=== PATIENT | female | born 1940 | race Caucasian/White ===

== ENCOUNTER 2017-07-24 16:00 | Inpatient (IN) | payer OTHER ==
[~2017-07-24] VITALS: Ht 167.6 cm; Wt 54.2 kg
[~2017-07-24 16:00] MED LIST: AMITRIPTYLIN25 MG PO; EC-NAPROSYN500 MG PO; TRAMADOL HYDROC50 MG PO
--- NOTE | 2017-07-24 16:23 | NUR ---
PT TAKEN BY WHEELCHAIR TO ROOM.
[2017-07-24] MEDS ORDERED: VERAPAMIL240 M1 PO (16:57)
[2017-07-24] MEDS ORDERED: VERAPAMIL120 M1 PO (16:57)
[2017-07-24] MEDS ORDERED: SPIRIVA RE2.5 MCG/AC IN (16:58)
[2017-07-24] MEDS ORDERED: VENTOLIN HFA IN (16:59)
[2017-07-24] MEDS ORDERED: XARELTO10 MG PO (17:02)
[2017-07-24] MEDS ORDERED: AMITRIPTYLIN25 MG PO (17:03)
[2017-07-24] MEDS ORDERED: CRESTOR20 MG PO (17:04)
[2017-07-24] MEDS ORDERED: PANTOPRAZOLE SO40 MG PO (17:04)
[2017-07-24] MEDS ORDERED: MIRAPEX0.125 MG PO (17:06)
[2017-07-24] MEDS ORDERED: ACETAMIN500 M2 PO (17:08)
[2017-07-24] MEDS ORDERED: AMBIEN5 MG PO (17:10)
[2017-07-24] MEDS ORDERED: PROLIA60 MG/ML SC (17:11)
[2017-07-24] MEDS ORDERED: TOVIAZ8 MG PO (17:13)
[2017-07-24] MEDS ORDERED: TRIMETHOPRIM100 MG PO (17:13)
[2017-07-24] MEDS ORDERED: UNIPHYL400 MG PO (17:14)
[2017-07-24] MEDS ORDERED: B121000 MCG PO (17:15)
[2017-07-24] MEDS ORDERED: SYMBICORT1 AE1 IN (17:16)
[2017-07-24] MEDS ORDERED: SEROQUEL25 MG PO (17:16)
[2017-07-24] MEDS ORDERED: AMOX/K CLAV875 M1 PO (17:17)
[2017-07-24] MEDS ORDERED: PREDNISONE20 MG PO (17:17)
--- NOTE | 2017-07-24 17:19 | NUR ---
BEDRESTING. YUMIKO PHAN
--- NOTE | 2017-07-24 17:44 | NUR ---
Pt awaiting test results. Meds given, awaiting respiratory for breathing tx's
--- NOTE | 2017-07-24 17:51 | NUR ---
BREATHING TREATMENT GIVEN BACK TO BACK. BREATHING TECH./ FOR GOOD DEPOSITION TO THE LUNGS.
[2017-07-24 17:57] LABS: HEMATOCRIT 37.5 % (37.0-47.0); HEMOGLOBIN 12.2 g/dl (12.0-16.0); IMMATURE GRANULOCYTES 0.2 % (0.0-1.0); MEAN CELL VOLUME 93.5 fL CALC (80.0-100.0); MEAN CORPUSCULAR HGB 30.4 pG CALC (26.0-32.0); MEAN CORPUSCULAR HGB CONC 32.5 g/L CALC (32.0-36.0); NEUT# 5.21 thou/uL (2.00-7.15); RED BLOOD COUNT 4.01 mill/uL (4.20-5.60); RED CELL DISTRI WIDTH 12.9 % (11.5-15.5)
[2017-07-24 18:17] LABS: ALBUMIN 4.3 g/dL (3.2-5.0); ALKALINE PHOSPHATASE 47 u/l (38-126); ANION GAP 16 (6-22 (CALC)); BILIRUBIN, TOTAL 0.5 mg/dL (0.0-1.4); BUN 10 mg/dL (8-23); BUN/CREATININE RATIO 18 (12-20 (CALC)); CALCIUM 9.4 mg/dL (8.4-10.2); CARBON DIOXIDE 23 mmol/l (22-30); CHLORIDE 107 mmol/l (95-108); CREATININE 0.6 mg/dL (0.5-1.0); GFR > 60 ML/MIN (>=60 (CALC)); GFR FOR AFR.AMER. > 60 ML/MIN (>=60 (CALC)); GLUCOSE 92 mg/dL (82-115); POTASSIUM 3.5 mmol/l (3.5-5.1); SGOT/AST 29 u/l (9-36); SGPT/ALT 31 u/l (11-66); SODIUM 142 mmol/l (137-146); TOTAL PROTEIN 7.3 g/dL (6.3-8.2)
[2017-07-24 18:29] LABS: MYOGLOBIN 27 ng/mL (0 - 62)
--- NOTE | 2017-07-24 18:32 | NUR ---
TO RADIOLOGY VIA W/C. SMILING AND COOPERATIVE
--- NOTE | 2017-07-24 18:46 | NUR ---
UPON RETURN FROM RADIOLOGY, WENT TO BATHROOM. BECAME GROSSLY SOB-USING ACCESSORY MUSCLES TO BREATHE. MD AT BEDSIDE. ADVISED ADMISSION. PT AGREED TO STAY.
--- NOTE | 2017-07-24 18:59 | NUR ---
REPORT TO JEROD PATINO
[2017-07-24 19:02] LABS: URINE BILIRUBIN - DIPSTICK NEGATIVE (NEGATIVE); URINE BLOOD DIPSTICK NEGATIVE (NEGATIVE); URINE COLOR YELLOW; URINE GLUCOSE - DIPSTICK NEGATIVE (NEGATIVE); URINE KETONE TRACE mg/dL (NEGATIVE); URINE LEUK ESTERASE NEGATIVE (NEGATIVE); URINE NITRITE - DIPSTICK NEGATIVE (Negative); URINE PROTEIN - DIPSTICK NEGATIVE (NEG-TRACE); URINE SPECIFIC GRAVITY 1.015; URINE UROBILINOGEN - DIPSTICK 0.2 E.U./dL (0.2)
[2017-07-24 19:03] LABS: URINE CLARITY CLEAR
--- NOTE | 2017-07-24 19:18 | NUR ---
PT AWAKE AND ALERT, NO RESP DISTRESS NOTED. RESP TECH PLACED PT ON O2 AT 2L VIA NC.
--- NOTE | 2017-07-24 20:01 | NUR ---
DR CÁRDENAS AT BEDSIDE.
--- NOTE | 2017-07-24 20:40 | NUR ---
MED/SURG CALLED FOR REPORT, UNABLE TO TAKE AT THIS TIME.
--- NOTE | 2017-07-24 21:51 | NUR ---
REPORT TO JB NEWSOME
--- NOTE | 2017-07-24 21:56 | NUR ---
PT ASSISTED TO BATHROOM WITH W/C AND RN. PT BECAME SOB AND VERY ANXIOUS, RETURNED TO BED.
--- NOTE | 2017-07-24 22:08 | NUR ---
DR CÁRDENAS AT BEDSIDE TO EVALUATE PT. PT SA02 95% LUNGS CLEAR.
[2017-07-24 22:10] VITALS: BP 135/84
--- NOTE | 2017-07-24 22:14 | NUR ---
PT TO RM 282 WITH O2 AND NURSE.
--- NOTE | 2017-07-24 23:00 | NUR ---
PATIENT ADMITTED FROM ER VIA STRETCHER WITH AND ER STAFF IN ATTENDANCE. PATIENT ASSITED TO THE BED-O2 VIA NASAL CANNULA IN PLACE. PATIENT WITH IV SITE TO RIGHT AC-SITE APPEARS HEALTHY WITH GOOD BLOOD RETURN. IVF LR HUNG AND INFUSING AT 50CC/HR. AZITHROMYCIN HUNG ORDERED. BEDTIME MEDS GIVEN ORDERED. PATIENT IS PRIMARILY [place] SPEAKING-[place] FROM [place]. JUST GOT HERE 1 WEEK AGO AND GOT SICK LAST MONDAY WITH SOB AND WEAKNESS. PATIENT IS QUITE ANXIOUS AND MEDICATED WITH XANAX ORDERED. PATIENT ORIENTED TO ROOM AND SURROUNDINGS. PROVIDED WITH TURKEY SANDWICH, YOUGART AND DRINK. SAFETY PRECAUTIONS REVIEWED WITH PATIENT AND . INSTRUCTED ON USE OF NURSE CALL LIGHT SYSTEM TV REMOTE. CALL LIGHT IN REACH. WILL CONT TO MONITOR.
[2017-07-24 23:35] VITALS: BP 141/86
[2017-07-25] VITALS (43 sets, daily range): BP systolic 98–168; BP diastolic 51–95
--- NOTE | 2017-07-25 04:00 | NUR ---
PATIENT APPEARS SLEEPING WITH O2 VIA NASAL CANNULA IN PLACE. APPEARS SLEEPING ON COT PROVIDED. CALL LIGHT IN REACH. WILL CONT TO MONITOR.
[2017-07-25 05:40] LABS: ANION GAP 14 (6-22 (CALC)); BUN 14 mg/dL (8-23); BUN/CREATININE RATIO 27 (12-20 (CALC)); CALCIUM 8.7 mg/dL (8.4-10.2); CARBON DIOXIDE 21 mmol/l (22-30); CHLORIDE 110 mmol/l (95-108); CREATININE 0.5 mg/dL (0.5-1.0); GFR > 60 ML/MIN (>=60 (CALC)); GFR FOR AFR.AMER. > 60 ML/MIN (>=60 (CALC)); GLUCOSE 152 mg/dL (82-115); POTASSIUM 3.6 mmol/l (3.5-5.1); SODIUM 142 mmol/l (137-146)
--- NOTE | 2017-07-25 06:00 | NUR ---
RECIEVED CALL FROM ALBA IN THE ER THAT STATES THAT PATIENT HAS CHANGE IN RHYTM ON TELE. EKG OBTAINED. PATIENT STATES THAT SHE IS FEELING BEETER THIS MORNING THAN SHE DID LAST NIGHT. CALL LIGHT IN REACH. WILL CONT TO MONITOR.
--- NOTE | 2017-07-25 08:00 | NUR ---
VANCE DEGROOT AWARE OF RHYTM CHANGES ON EKG'S. PATIENT EATING BREAKFAST. WILL CONT TO MONITOR.
--- NOTE | 2017-07-25 08:15 | NUR ---
ED CALLED TO REPORT PT.HR140'S SUSTAINED, V/S ASSESSED, BP 117/77, NOTIFIED ZANE WOODARD, EKG ORDERED/RAMONA IS IN WITH PT.AT THIS TIME, PT.IS UPRIGHT EATING BREAKFAST AND IS ASYMPTOMATIC, VANCE ORDERED PT.'S VERAPAMIL 120 TO BE GIVEN NOW, I HAVE CALLED PHARMACY TO BRING VERAPAMIL TO THE FLOOR.
[2017-07-25 08:22] LABS: CHOLESTEROL HDL RATIO 1.7 (<4.4 (CALC))
--- NOTE | 2017-07-25 08:25 | NUR ---
PT.MEDICATED W/VERAPAMIL FOR HR, EKG HAS BEEN PERFORMED, GIVEN TO ZANE WOODARD
--- NOTE | 2017-07-25 09:45 | NUR ---
PT.MEDICATED BY JEROD LORA WICK AND BASE ASSEMBLER WITH CARDIZEM IV SLOW PUSH. AND ZANE WOODARD IN ROOM WITH PT.AT THIS TIME, HR 160'S INITIALLY AND NOW DOWN TO 90'S AFTER CARDIZEM ADMINISTERED.
--- NOTE | 2017-07-25 10:15 | NUR ---
PT.TRANSFERED TO ICU VIA BED IN STABLE CONDITION. PT.ACCOMPANIED BY LUCERO.
--- NOTE | 2017-07-25 10:15 | NUR ---
PT TRANSFERRED TO ICU BED 5 VIA BED FROM MED SURG, PT ALERT AND ORIENTED, LUNGS CLEAR DIMINSHED, PT SLIGHLY ANXIOUS, REPEATEDLY LOOKING AT MONITOR DURING EQUIPMENT APPLICATION, ALL MONITORING EQUIPMENT EXPLAINED PRIOR TO APPLICATION, PT PRIMARY LANGUAGE IS INDIAN, ABLE TO SPEAK SOME KENYAN AND COMMUNICATE NEEDS, LUNGS ARE CLEAR WITH NO SHORTNESS OF BREATH OR DISTRESS NOTED, O2 ON QAT 2L VIA NC, SKIN WARM, DRY AND INTACT, NO BREAKDOWN NOTED, ABD SOFT AND BS PRESENT PT HAS 22G IV ACCESS IN RAC WITH LR INFUSING AT PRESCRIBED RATE, PT GIVEN CARDIZEM IVP PER REPORT FROM MED SURG, TELE CURRENTLY READING A FIB RATE WITH OCCASIONAL SR RUNS, RATE FLUCUATING GREATLY FROM 90-120'S, NO EDEMA NOTED, BP STABLE, O2 SATS ON 2L NC 97%, SAFETY MEASURES REINFORCED, ORIENTED TO ROOM, UNIT, FREQUENCY OF VS, MONITORING ETC... ALL QUESTIONS ANSWERED, CALL HSIEH WITHIN REACH
--- NOTE | 2017-07-25 11:00 | NUR ---
PT.TRANSFERRED TO ICU IN STABLE CONDITION VIA STRETCHER ACCOMPANIED BY JEROD LADD AND MELONY FUNES
--- NOTE | 2017-07-25 11:00 | NUR ---
TELE REMAINS UNCHANGED, HR FLUCUATES GREATLY FROM 90-120'S WITH SLIGHTLY MORE SUSTAINED PERIODS OF TACHYCARDIA, PT REMAINS ANXIOUS AND REPEATEDLY LOOKS AT MONITOR, COMFORT MEASURES PROVIDED,
--- NOTE | 2017-07-25 12:03 | NUR ---
PT REMAINS SUSTAINED A FIB RATE 120-180, AWARE NEW ORDERS REC'D
--- NOTE | 2017-07-25 12:15 | NUR ---
CARDIZEM GTT STARTED ORDERED AFTER BOLUS GIVEN FROM INFUSION ORDERED, GTT STARTED AT 5 MG/HR ORDERED, WILL MONITOR TOLERANCE
--- NOTE | 2017-07-25 12:45 | NUR ---
HR REMAINS SUSTAINED TACHY WITH FEW BRIEF PERIODS OF CONTROLLED RATE, CARDIZEM GTT INCREASED PER PROTOCOL TO 10MG/HR, WILL MONITOR TOLERANCE. SPOUSE REMAINS AT BEDSIDE
--- NOTE | 2017-07-25 13:10 | NUR ---
PT RESTING, REMAINS SLIGHTLY ANXIOUS CONTINUES TO LOOK AT MONITOR FREQUENTLYM, EDUCATED EARLIER REGARDING CARDIZEM GTT, REASON FOR ADMIN, EXPECTATIONS AND POSSIBLE SIDE EFFECTS, PT VERBALIZES UNDERSTANDING, CALL HSIEH WITHIN REACH.
--- NOTE | 2017-07-25 13:39 | NUR ---
SECOND 10MG BOLUS OF CARDIZEM GIVEN IV VIA INFUSION, SPOUSE AT BEDSIDE, HR CONTINUES TO FLUCAUTE BUT SUSTAINED 120-160, BP REMAINS STABLE, WILL MONITOR CLOSELY.
--- NOTE | 2017-07-25 14:15 | NUR ---
PT HR CONTINUES TO FLUCUATE, VS REMAIN STABLE, AT BEDSIDE INTERMITTENLY, CALL HSIEH WITHIN REACH, O2 REMAINS ON VIA NC, WILL CONTINUE TO MONITOR
--- NOTE | 2017-07-25 15:45 | NUR ---
PT RESTING, HR CONTINUES TO FLUCUATE CARDIZEM GTT AT MAX, WILL CONTINUE TO MONITOR.
--- NOTE | 2017-07-25 16:18 | NUR ---
PT OOB TO BSC WITH INCREASED SHORTNESS OF BREATH AND ELEVATED HR, VANCE DEGROOT AWARE CONSULTED EARLIER AND TO SEE PT THIS PM, SPOUSE REMAINS AT BEDSIDE, CALL INTO RT FOR TREATMENT, WILL MONITOR CLOSELY
--- NOTE | 2017-07-25 16:35 | NUR ---
RT AT BEDSIDE FOR XOPENEX TREATMENT, PT ENCOURAGED TO REST AND PURSED LIP BREATHING.
--- NOTE | 2017-07-25 16:51 | NUR ---
PT RESTING, SLIGHTLY LESS DISTRESSED, AND HR CONTINUES TO BE TACHYCARDIC RATE FLUCUATES GREATLY FROM 80-140, SUSTAINS AT HIGHER RATES, VANCE TRANSVERSE ABDOMINAL MUSCLE NURSE AWARE, PER VERBAL ORDER TO START AMIODARONE IV
--- NOTE | 2017-07-25 17:44 | NUR ---
AMIODARONE BOLUS COMPLETE AND GTT STARTED PER PROTOCOL, NEW 22G STARTED IN LEFT AC FOR PENDING ABT THIS PM, PT TOLERATED WELL, SPOUSE AT BEDSIDE, WILL CONTINUE TO MONITOR.
--- NOTE | 2017-07-25 18:11 | NUR ---
PT RESTING, SET UP ASSIST PROVIDED EARLIER FOR PM MEAL, CALL HSIEH WITHIN REACH, SPOUSE REMAINS AT BEDSIDE
--- NOTE | 2017-07-25 19:00 | NUR ---
awake. somewhat anxious. sob with any exertion. o2 cont per nc. slight wheezing bilat. no acute resp diff. head of mathematics shows a fib occas pvcs. #22 lac saline lock. #22 rac amio conts @ 33cchr. rl infusing @ 50cchr. po fluids taken well. voids per bsc. fall precautions cont. @ bedside. spoke to pt @ length about activity & sob. pt verbalized understanding.
--- NOTE | 2017-07-25 19:25 | NUR ---
pt requested spiriva inh. admits physician was supposed to order today. dr leblanc notified. orders rec'd.
--- NOTE | 2017-07-25 20:00 | NUR ---
residential monitor shows a fib pvcs. hr fluctuates between 80-130.
--- NOTE | 2017-07-25 20:35 | NUR ---
pt very anxious. xanax 0.5mg po given. @ bedside.
--- NOTE | 2017-07-25 22:00 | NUR ---
sonata 5mg po & guaifenesin w codeine 10cc po given for sleep & cough. remains @ bedside. less anxious @ present.
[2017-07-26] VITALS (18 sets, daily range): BP systolic 110–155; BP diastolic 55–97
--- NOTE | 2017-07-26 00:01 | NUR ---
awake. watching tv. no resp distress. o2 cont. asleep in recliner.
--- NOTE | 2017-07-26 02:00 | NUR ---
eyes closed. no distress. lock installer shows a fib pvcs hr 80-120.
--- NOTE | 2017-07-26 04:00 | NUR ---
resting quietly. no apparent distress. o2 cont.
--- NOTE | 2017-07-26 05:45 | NUR ---
lab here. blood drawn.
--- NOTE | 2017-07-26 06:00 | NUR ---
voided per bedpan. has refused to get oob this shift to void. admits "breathing gets worse." has been sob with ANY exertion this shift. remains @ bedside.
[2017-07-26 06:18] LABS: HEMATOCRIT 33.6 % (37.0-47.0); HEMOGLOBIN 10.5 g/dl (12.0-16.0); IMMATURE GRANULOCYTES 0.4 % (0.0-1.0); MEAN CELL VOLUME 95.2 fL CALC (80.0-100.0); MEAN CORPUSCULAR HGB 29.7 pG CALC (26.0-32.0); MEAN CORPUSCULAR HGB CONC 31.3 g/L CALC (32.0-36.0); NEUT# 9.78 thou/uL (2.00-7.15); RED BLOOD COUNT 3.53 mill/uL (4.20-5.60); RED CELL DISTRI WIDTH 13.2 % (11.5-15.5)
[2017-07-26 06:28] LABS: ANION GAP 13 (6-22 (CALC)); BUN 12 mg/dL (8-23); BUN/CREATININE RATIO 28 (12-20 (CALC)); CALCIUM 8.4 mg/dL (8.4-10.2); CARBON DIOXIDE 20 mmol/l (22-30); CHLORIDE 114 mmol/l (95-108); CREATININE 0.4 mg/dL (0.5-1.0); GFR > 60 ML/MIN (>=60 (CALC)); GFR FOR AFR.AMER. > 60 ML/MIN (>=60 (CALC)); GLUCOSE 140 mg/dL (82-115); POTASSIUM 4.1 mmol/l (3.5-5.1); SODIUM 144 mmol/l (137-146)
--- NOTE | 2017-07-26 07:05 | NUR ---
NEB TX NOT GIVEN DUE TO INCREASED HR AND PT HAS TAKEN HER OWN ALBUTEROL INHALER.
--- NOTE | 2017-07-26 07:30 | NUR ---
PT RESTING IN BED, PT ALERT AND ORIENTED, PT ANXIOUS AT TIMES W/ SHOTRNESS OF BREATH NOTED WITH MIIMAL EXERTION AND TIGHT MOIST COUGH NOTED, PT ENCOURGAED TO PROVIDE SPECIMEN, (CUP PROVIDED) LUNGS W/ WHEEZES DIMINSHED IN BASES, PT PRIMARY LANGUAGE IS GREENLANDIC, ABLE TO SPEAK SOME AZERBAIJANI AND ABLE TO COMMUNICATE NEEDS, O2 ON AT 2L VIA NC, SKIN WARM, DRY AND INTACT, NO BREAKDOWN NOTED, ABD SOFT AND BS PRESENT PT HAS 22G IV ACCESS IN RAC WITH LR INFUSING AT PRESCRIBED RATE, AMIODARONE GTT COTINUES AT 0.5 MG/MIN, TELE CURRENTLY READING A FIB RATE WITH OCCASIONAL SR RUNS, RATE FLUCUATING GREATLY FROM 60-120'S, NO EDEMA NOTED, BP STABLE, O2 SATS ON 2L NC 97%, SAFETY MEASURES REINFORCED, CALL HSIEH WITHIN REACH
--- NOTE | 2017-07-26 07:45 | NUR ---
SET UP ASSIST PROVIDED FOR AM MEAL, SPOUSE REMAINS AT BEDSIDE, EDUCATION PROVIDED REGARDING USE OF INHALERS, MEDICATIONS PROVIDED DURING HOSPITAL STAY ETC...PT VERBALZIES UNDERSTANDING, PT REMAINS ANXIOUS AT TIMES AND MILDLY SHORT OF BREATH WITH O2 AT 2L, TELE REMAINS A FIB WITH RUNS OF SR RATE FLUCUATES GREATLY FROM 60-120'S, CALL HSIEH WITHIN REACH.
--- NOTE | 2017-07-26 08:30 | NUR ---
PT RESTING, O2 REMAINS AT 2L VIA NC, SHORT OF BREATH WITH MINIMAL EXERTION, REMINDED TO REST PRN, CALL HSIEH WITHIN REACH, SPOUSE AT BEDSIDE OCCASIONALLY LEAVES TO GET COFFEE AND SMOKE, PT SPOUSE INSIST HE DOESN'T SMOKE IN THE HOUSE OR INTHE CARE (SO IT ISN'T AROUND HER). CALL HSIEH WITHIN REACH
--- NOTE | 2017-07-26 09:40 | NUR ---
PT HR CONTINUES TO FLUCUATE GREATLY MORE SUSTAINED AT ELEAVTED RATE WILL CONTINUE TO MONITOR CLSOELY, SPOUSE REMAINS AT BEDSIDE, TOOK AM MEDICATIONS EARLIER W/O INCIDENT SPUTUM SPECIMEN OBTAINED EARLIER, MEDICATED FOR ANXIETY WELL, WILL CONTINUE TO MONITOR
--- NOTE | 2017-07-26 10:00 | NUR ---
PT ALERT, ORIENTED X3. PERRLA 3MM. PT IS A FIB WITH A HEART RATE OF 122.PT HAS NO COMPLAINTS OF CHEST PAIN BUT IS SHORT OF BREATH. PT'S LUNGS ARE WHEEZY AT R/L UPPER LOBES, DIMINISHED AT THE BASES. PT'S RESPIRATIONS ARE 22 AND LABORED. PT HAS A PRODUCTIVE COUGH WITH THICK PETERS SPUTUM. A SPUTUM SPECIMEN WAS OBTAINED AND SENT TO LAB. PT CONTINUES TO BE ANXIOUS. BOWEL SOUNDS ACTIVE IN ALL FOUR QUADRANTS. ABDOMEN IS SOFT. PEDAL PULSES ARE STRONG. PT ASSISTED WITH ORAL HYGIENE. PT HAS REQUESTED TO GET WASHED UP IN THE AFTERNOON. IS AT BEDSIDE. PT STATES NO NEEDS AT THIS TIME. CALL LIGHT WITHIN REACH. WILL CONTINUE TO MONITOR.
--- NOTE | 2017-07-26 10:23 | NUR ---
VANCE DEGROOT NOTIFIED OF SUSTAINED TACHYCARDIA, IN TO SEE PATIENT EARLIER STATED HE WOULD RETURN.
--- NOTE | 2017-07-26 11:22 | NUR ---
PT RESTING WITH EYES CLOSED HR REMAINS TACHYCARDIC RAET 110-130 WITH SHORT PERIODS OF SR RATE 70-90, VANCE DIAMOND SETTER APPRENTICE AWARE. WILL CONTINUE TO MONITOR.
--- NOTE | 2017-07-26 12:11 | NUR ---
VANCE DEGROOT AT BEDSIDE, DISCUSSING PLAN OF CARE WITH PATIENT.
--- NOTE | 2017-07-26 12:30 | NUR ---
PT RESTING IN BED, OFFERS NO NEW COMPLAINTS, NO CHANGES NOTED, CALL HSIEH WITHIN REACH, WILL MONITOR CLOSELY.
--- NOTE | 2017-07-26 13:00 | NUR ---
XOPENEX TX GIVEN THEREFORE DUONEB WAS NOT.
--- NOTE | 2017-07-26 13:19 | NUR ---
PLAN OF CARE DISCUSSED WITH VIA TELEPHONE, PT EDUCATED, RESTING AT THIS TIME, COMPLETED RESP TX EARLIER (XOPENEOX) AND TOLERATES WELL. CALL HSIEH WITHIN REACH, SPOUSE REMAINS AT BEDSIDE.
--- NOTE | 2017-07-26 14:14 | NUR ---
PT RESTING IN BED, SHORT OF BREATH WITH MININAL EXERTION BUT DENIES COMPLAINTS, CONTINUES ON O2 NC 2L STARTED FIRST DOSE OF MULTAQ PO, EDUCATED REGARDING DOSAGE, REASON FOR ADMINISTRATION, EXPECTATIONS, AND POTENTIAL SIDE EFFECTS, CALL HSIEH WITHIN REACH
--- NOTE | 2017-07-26 15:50 | NUR ---
PT RESTING IN BED, OFFERS NO NEW COMPLAINTS, CONTINUE TO HAVE WHEEZES AND TACHYCARDIC RATE AMIODARON GTT CONTINUES PER PROTOCOL, CALL HSIEH WITHIN REACH. MD AND PEST CONTROL WORKER HELPER AWARE OF CONTINUED TACHYCARDIA.
--- NOTE | 2017-07-26 17:00 | NUR ---
PT INCONTINENT OF LARGE AMOUNT OF URINE, LINENS CHANGEDM, AND TOTAL BED BATH COMPLETED, PT TOLERATED BUT MORE ANXIOUS, WHEEZY AND SHORT OF BREATH, HR ELEVATED TO 140-160'S, ENCOURAGED PURSED LIP BREATHING, AND EMOTIONAL SUPPORT GIVEN
--- NOTE | 2017-07-26 17:46 | NUR ---
PT RESTING HR REMAINS TACHYCARDIC BUT TOLERATED DUO NEB WITH MINIMAL CHANGE IN HR, WILL MONITOR CLOSELY. BP REMAINS STABLE. SPOUSE AT BEDSIDE
--- NOTE | 2017-07-26 18:34 | NUR ---
pt resting in bed, toelrated pm meal, HR continues to be tachycardic rate flucuating from 110-130's. offers no other complaints, call hung within reach, spouse at bedside
--- NOTE | 2017-07-26 19:30 | NUR ---
awake. much less anxious tonite. no acute resp diff. o2 cont per nc. monitor car operator shows a fib pvcs hr 65-121. #22 lac & rac saline lock. po fluids taken well. fall precautions cont. using laptop computer. @ bedside.
--- NOTE | 2017-07-26 21:45 | NUR ---
@ desk. admits is "having trouble." no acute resp diff. habitat conservation planner shows a fib pvcs hr 111. sonata 5mg po given.
--- NOTE | 2017-07-26 22:00 | NUR ---
no further c/o. using laptop computer. @ bedside.
[2017-07-27] VITALS (16 sets, daily range): BP systolic 86–170; BP diastolic 63–107
--- NOTE | 2017-07-27 00:01 | NUR ---
drowsy. watching tv. no c/o voiced. asleep in recliner.
--- NOTE | 2017-07-27 02:00 | NUR ---
resting quietly. resps unlabored. personnel monitor shows a fib pvcs.
--- NOTE | 2017-07-27 05:00 | NUR ---
lab here. blood drawn.
[2017-07-27 05:30] LABS: ANION GAP 12 (6-22 (CALC)); BUN 13 mg/dL (8-23); BUN/CREATININE RATIO 27 (12-20 (CALC)); CALCIUM 8.8 mg/dL (8.4-10.2); CARBON DIOXIDE 25 mmol/l (22-30); CHLORIDE 112 mmol/l (95-108); CREATININE 0.5 mg/dL (0.5-1.0); GFR > 60 ML/MIN (>=60 (CALC)); GFR FOR AFR.AMER. > 60 ML/MIN (>=60 (CALC)); GLUCOSE 131 mg/dL (82-115); MAGNESIUM 2.3 mg/dL (1.6-2.3); POTASSIUM 3.7 mmol/l (3.5-5.1); SODIUM 145 mmol/l (137-146)
[2017-07-27 05:36] LABS: HEMATOCRIT 33.9 % (37.0-47.0); HEMOGLOBIN 10.8 g/dl (12.0-16.0); IMMATURE GRANULOCYTES 0.7 % (0.0-1.0); MEAN CELL VOLUME 95.5 fL CALC (80.0-100.0); MEAN CORPUSCULAR HGB 30.4 pG CALC (26.0-32.0); MEAN CORPUSCULAR HGB CONC 31.9 g/L CALC (32.0-36.0); NEUT# 8.22 thou/uL (2.00-7.15); RED BLOOD COUNT 3.55 mill/uL (4.20-5.60); RED CELL DISTRI WIDTH 13.2 % (11.5-15.5)
--- NOTE | 2017-07-27 06:00 | NUR ---
awake. no c/o voiced. weighted per bed as ordered. o2 cont. @ bedside.
--- NOTE | 2017-07-27 07:25 | NUR ---
PT ALERT AND ORIENTED RESTING INBED, SOME MILD ANXIETY NOTED PT HAS LABORED RESPS WORSENING WITH MINIMAL EXERTION, LUNGS WITH WHEEZES THROUGH OUT AND O2 ON AT 2L VIA NC PT SKIN WARM AND DRY WITH NO BREAKDOWN NOTED, ABD SOFT AND BOWEL SOUNDS ACTIVE, PT TAKING STOOL SOFTENER DAILY, NO EDEMA NOTED, COMFORT MEASURES PROVIDED ADN EMOTIONAL SUPPORT PROVIDED, HR REMAINS TACHYCARDIC AFIB/MULTIFOCAL ST RATE 90-150, SPOUSE REMAINS AT BEDSIDE
--- NOTE | 2017-07-27 07:45 | NUR ---
SET UP ASSIST PROVIDED FOR AM MEAL, SPOUSE REMAINS AT BEDSIDE, SOME INCRESED ANXIETY NOTED.
--- NOTE | 2017-07-27 08:25 | NUR ---
PT ONTO BED JACINTO, INCONTINENT OF LARGE AMOUNT OF URINE, ASHLEY CARE PROVIDED AND CLEAN PAD PLACED UNDER PATIENT, WITH THAT ACTIVITY, THEN PT TAKES PO MEDICATION, BECOMING INCREASINGLY MORE SHORT OF BREATH WITH MINIMAL EXERTION, LABORED SHALLOW RESPS NOTED, RT AT BEDSIDE, XOPENEX TREATMENT INITIATED, WILL NOTIFY
--- NOTE | 2017-07-27 08:40 | NUR ---
BI PAP PLACED BY RT SEE LFOWSHEET FOR SETTINGS, PT TOLERATES WELL, SPOUSE AT BEDSIDE AND TREATMENT EXPLAINED PRIOR TO APPLICATION, PT VERBALIES CONSENT, CALL HSIEH WITHIN REACH, COMFORT MEASURES PROVIDED.
--- NOTE | 2017-07-27 09:15 | NUR ---
INTO SEE PATIENT, DISCUSSED PLAN OF CARE, INCLUDING TRANSFER TO [facility], PT AND SPOUSE VERBALIZES UNDERSTANDING, AND CONSENT, CALL HSIEH WITHIN REACH PT CONTINUES TO TOLERATE BIPAP, APPEARS MUCH CALMER, LESS LABORED RESPS AND LESS ANXIOUS, WILL CONTINUE TO MONTIOR
--- NOTE | 2017-07-27 09:53 | NUR ---
PT TOLERATING BI PAP WELL, PLANNED TRASNFER TO [facility], PT AND PSOUSE AWARE, NO BED AVAIALABLE AT IS TIME PER LAN AT [facility], THEY WILL NOTIFY US WHEN BED AVAIABLE.
--- NOTE | 2017-07-27 11:00 | NUR ---
Pt resting in bed, continues to tolerate bi-pap, resting comfortably, call hung within reach.
--- NOTE | 2017-07-27 11:47 | NUR ---
pt remains resting in bed, cotninues to tolerate bi pap well, appears much calmer and more comfortable, call hung within reach.
--- NOTE | 2017-07-27 12:16 | NUR ---
pt oob to bsc wtih bi pap on, tolerated well, voided 800 ml clear zaire urine, shelli care provided, complete linen change done as well as clean gown applied, pt back to bed with min assist and tolerated well, much less distress and anxiety than this am, will continue to monitor.
--- NOTE | 2017-07-27 13:27 | NUR ---
PT RESTING IN BED, CONTINUES TO TOLERAZTE BI PAP, SANTYUE TO AWAIT BED ASSIGNMENT FROM [facility]. CALL HSIEH WITHIN REACH, SPOUSE INTERMITTENLY AT BEDSIDE.
--- NOTE | 2017-07-27 13:46 | NUR ---
CONTINUES TO TOLERATE BIPAP, REMOVED PERIODICALLY FOR PO FLUID INTAKE, WPOUSE REMAINS AT BEDSIDE, CONTINUE TO AWAIT BED ASSIGNMENT FROM [facility], WILL CONTINUE TO MONITOR.
--- NOTE | 2017-07-27 14:13 | NUR ---
PT OFF BIPAP SINCE 1349, TOLERATING WELL, CASE MGMT AT BEDSIDE
--- NOTE | 2017-07-27 14:25 | NUR ---
PT ,EDICTED FRO ANXIETY, PLACED BACK ON BIPAP, TOLERATING WELL.
--- NOTE | 2017-07-27 15:35 | NUR ---
PT RESTING, CONTINUES TO TOLERATE BI PAP, CALL HSIEH WITHIN REACH, SPOUSE INTERMITTENTLY AT BEDSIDE.
--- NOTE | 2017-07-27 17:07 | NUR ---
PT RESTING, WILL REMOVE BI-PAP FOR PM MEAL, INTO SEE PT, PLAN OF CARE DISCUSSED, CONTINUE TO AWAIT BED ASSIGNMENT AT [facility].
--- NOTE | 2017-07-27 17:36 | NUR ---
PER ABDON (PER ) TRANSFFER ON HOLD TIL AM IF ICU BED STILL NEEDED. RE CALL IN AM.
--- NOTE | 2017-07-27 17:39 | NUR ---
BI PAP OFF AT HIS TIME, FOR PM MEAL AND TOMONITOR TOLERANCE ON NC, PLACED NC AT 3L, WILL MONITOR CLOSELY.
--- NOTE | 2017-07-27 17:41 | NUR ---
XSHAYLEE INSTEAD OF DUONEB.
--- NOTE | 2017-07-27 18:08 | NUR ---
PT BACK ON BIPAP AND UP[ TO BSC, TOLERATED WELL, CALL HSIEH WITHIN REACH, SPOUSE AT BEDSIDE
--- NOTE | 2017-07-27 19:30 | NUR ---
PT SITTING UP IN BED. PT IS ALERT AND ORIENTED X3. PERRLA. BIPAP IN PLACE. RESP ARE EVEN AND UNLABORED. LUNGS ARE DIMINSHED IN THE BASES AND WHEEZING NOTED IN THE UPPER LOBES BILATERALLY. PT WITH COMPLAINTS OF BIPAP MASK AND REQUESTING TO TAKE IT OFF FOR A SHORT PERIOD OF TIME. RESPIRATORY THERAPY NITIFIED AND INTO ROOM TO ASSIST. PADDING PROVIEDED TO NASAL BRIDGE TO PROVIDE COMFORT FOR MASK. HR IRREGULAR. PULSES PALPABLE THROUGHOUT. NO EDEMA NOTED. BS ACTIVE. LAST BM PT REPORTS IS 07/24/17. PT DENIES PAIN AT THIS TIME. #22 IN LAC AND #22 RAC BOTH ARE SALINE LOCKED. NO REDNESS OR EDEMA NOTED AT EITHER SITE. MONITORS IN PLACE. WILL CONTINUE TO MONITOR.
--- NOTE | 2017-07-27 19:58 | NUR ---
SPOUSE AT BEDSIDE.
--- NOTE | 2017-07-27 20:10 | NUR ---
PT IS ANXIOUS AND KEEPS PULLING AT BIPAP MASK. MARIELDDNER IN RT TO ROOM TO EXPLAIN IN [place] IMPORTANCE OF NOT PULLING OR READJUSTING MASK. PT GIVEN XANAX TO HELP CALM. WILL CONTINUE TO MONITOR
--- NOTE | 2017-07-27 21:36 | NUR ---
PT RESTING IN BED. BIPAP IN PLACE. NO DISTRESS NOTED AT THIS TIME. NO COMPLAINTS VOICED AT THIS TIME. WILL CONTINUE TO MONITOR
--- NOTE | 2017-07-27 21:51 | NUR ---
RESPIRATORY THERPAY CALLED TO ADJUST FACE MASK. NURSE HAS ADJUSTED FACE MASK SEVERAL TIMES. PT MOVES STRAPS ON MASK. REMINDED PT OF IMPORTANCE OF MASK TO STAY IN PLACE.
--- NOTE | 2017-07-27 22:08 | NUR ---
SPOUSE IN ROOM AND IS GOING TO STAY THE NIGHT AT BEDSIDE WITH PATIENT. EXPLAINED TO SPOUSE THE IMPORTANCE OF PATIENT GETTING REST TONIGHT. SPOUSE VERBALIZED UNDERSTANDING.
--- NOTE | 2017-07-27 23:48 | NUR ---
PT RESTING IN BED WITH EYES CLOSED. BIPAP IN PLACE. RESP ARE EVEN AND UNLABORED. MONITORS IN PLACE. SPOUSE AT BEDSIDE. WILL CONTINEU TO MONITOR
[2017-07-28] VITALS (9 sets, daily range): BP systolic 115–156; BP diastolic 45–85
--- NOTE | 2017-07-28 01:35 | NUR ---
PT ASSISTED TO BSC. PT HAD LABORED RESPIRATIONS AND SOB THROUGHOUT TRANSFER. PT REMAINED ON BIPAP AND O2 SAT DROPPED TO 71%. ONCE PT WAS BACK TO BED O2 SAT DID COME BACK UP TO 100%. MONITOR HAD HEART RATE OF 123 DURING ASSISTING TO BSC. PT NOW AT 83. SPOUSE IN ROOM WILL CONTINUE TO MONITOR
--- NOTE | 2017-07-28 02:15 | NUR ---
RESPIRATORY THERAPY INTO ROOM TO PROVIDE BREAK FROM BIPAP. PT O2 SAT DROPPED TO 83%. WILL CONTINUE TO MONITOR
--- NOTE | 2017-07-28 02:46 | NUR ---
PT REQUEST A BREATHING TREATMENT. RESPIRATORY NOTIFIED AND AT BEDSIDE. XANAX GIVEN FOR PT ANXIETY. DISCUSSED WITH RT, PT, AND SPOUSE TO TRY AND LEAVE BIPAP OFF AND KEEP PT ON O2 2L NC. NEB TREATMENT PROVIDED. WILL CONTINUE TO MONITOR.
--- NOTE | 2017-07-28 03:07 | NUR ---
SPENT ABOUT 30 MINUTES OFF BIPAP ON 3L NC. BACK ON BIPAP AT 0300.
--- NOTE | 2017-07-28 05:15 | NUR ---
PT RESTING IN BED WITH EYES CLOSED. BIPAP IN PLACE. SPOUSE IN ROOM. MONITORS IN PLACE. VOICES NO COMPLAINTS AT THIS TIME. WILL CONTINUE TO MONITOR
--- NOTE | 2017-07-28 06:10 | NUR ---
PT WITH COMPLAINTS OF BIPAP MACHINE. RT NOTIFIED. IT WAS AGREED TO TRY PATIENT ON O2 3L NC. IF PATIENT O2 SATS DROP WE WILL PLACE PATIENT BACK ON BIPAP. SPOUSE IN ROOM. WILL CONTINUE TO MONITOR.
--- NOTE | 2017-07-28 06:30 | NUR ---
PT PLACED ON 2L NC SPO2 96% BREATHING EXERCISE TEACHING PT RESTING AT BEDSIDE
--- NOTE | 2017-07-28 06:45 | NUR ---
REPORT RECEIVED FROM JEROD KIMBLE. PT RESTING COMFORTABLY WITH NC @3L. SPO2 IS GREATER THAN 93%. CALL LIGHT WITHIN REACH, INSTRUCTED PT TO CALL FOR ASSISTANCE, PT VERBALIZES UNDERSTANDING.
[2017-07-28 07:21] LABS: HEMATOCRIT 34.8 % (37.0-47.0); HEMOGLOBIN 10.9 g/dl (12.0-16.0); IMMATURE GRANULOCYTES 0.5 % (0.0-1.0); MEAN CELL VOLUME 94.8 fL CALC (80.0-100.0); MEAN CORPUSCULAR HGB 29.7 pG CALC (26.0-32.0); MEAN CORPUSCULAR HGB CONC 31.3 g/L CALC (32.0-36.0); NEUT# 6.12 thou/uL (2.00-7.15); RED BLOOD COUNT 3.67 mill/uL (4.20-5.60); RED CELL DISTRI WIDTH 12.9 % (11.5-15.5)
[2017-07-28 07:39] LABS: ALBUMIN 3.5 g/dL (3.2-5.0); ALKALINE PHOSPHATASE 40 u/l (38-126); ANION GAP 13 (6-22 (CALC)); BILIRUBIN, TOTAL 0.3 mg/dL (0.0-1.4); BUN 15 mg/dL (8-23); BUN/CREATININE RATIO 33 (12-20 (CALC)); CALCIUM 8.4 mg/dL (8.4-10.2); CARBON DIOXIDE 25 mmol/l (22-30); CHLORIDE 108 mmol/l (95-108); CREATININE 0.4 mg/dL (0.5-1.0); GFR > 60 ML/MIN (>=60 (CALC)); GFR FOR AFR.AMER. > 60 ML/MIN (>=60 (CALC)); GLUCOSE 114 mg/dL (82-115); POTASSIUM 3.3 mmol/l (3.5-5.1); SGOT/AST 45 u/l (9-36); SGPT/ALT 72 u/l (11-66); SODIUM 143 mmol/l (137-146)
--- NOTE | 2017-07-28 08:00 | NUR ---
PT OOB TO BSC, WITH MINIMAL RESPIRATORY DISTRESS NOTED. PT HR IS ELEVATED TO MID 120'S BUT SLOWS DOWN BETWEEN 80-90 ONCE RECOVERED AND BACK IN BED SAFELY. PT CALL LIGHT WITHIN REACH. INSTRUCTED PT TO CALL FOR ASSISTANCE, PT VERBALIZES UNDERSTANDING.
--- NOTE | 2017-07-28 10:00 | NUR ---
PT CONDITION REMAINS UNCHANGED, NO UPDATED INFORMATION FROM [facility] AT THIS TIME.
--- NOTE | 2017-07-28 11:57 | NUR ---
PT GIVEN XANAX AND ROBITUSSIN FOR RELAXATION AND COUGH. PT GIVEN CALL LIGHT AND INSTRUCTED TO USE FOR ASSISTANCE. PT VERBALIZES UNDERSTANDING.
--- NOTE | 2017-07-28 14:05 | NUR ---
EDUARDO FROM [facility] CALLED WITH BED ASSIGNMENT AT THIS TIME;
--- NOTE | 2017-07-28 15:02 | NUR ---
PT GIVEN BREATHING TREATMENT AT THIS TIME PER PT REQUEST.
--- NOTE | 2017-07-28 16:19 | NUR ---
PT ASSISTED TO BSC, PT APPEARS TO BE MORE ANXIOUS ABOUT TRANSFER TO [facility]. PT GIVEN XANAX, AND ROBITUSSIN WITH CODEINE. TO RELAX AND HELP WITH COUGH.
--- NOTE | 2017-07-28 18:05 | NUR ---
Discharge instructions given. Patient verbalizes understanding of same. Discharged in stable condition via Medical Transport to [facility] with [facility]. All belongings sent with pt.
--- NOTE | 2017-07-28 18:41 | NUR ---
REPORT CALLED JEROD SALDAÑA AT [facility]
== END 2017-07-28 17:45 | disposition short-term general hospital (02) | DRG 191 ==
LOC: ED 16:00 → ED-I 19:50 → ED 20:17 → MS2 20:18 → ICU 07-25 10:15
PROVIDERS: Emergency Medicine; Internal Medicine; Nurse Practitioner Family; ADMIT Internal Medicine; ATTEND Internal Medicine
PROC: 5A09357 Assistance with Respiratory Ventilation, Less than 24 Consecutive Hours, Continuous Positive Airway Pressure (ICD-10-PCS; principal; 2017-07-27)
DX: J44.1 Chronic obstructive pulmonary disease with (acute) exacerbation (principal); I47.1 Supraventricular tachycardia; E44.0 Moderate protein-calorie malnutrition; I48.0 Paroxysmal atrial fibrillation; D64.9 Anemia, unspecified; F41.1 Generalized anxiety disorder; E78.5 Hyperlipidemia, unspecified; G25.81 Restless legs syndrome; Z68.1 Body mass index [BMI] 19.9 or less, adult; G47.00 Insomnia, unspecified; I10 Essential (primary) hypertension; K59.00 Constipation, unspecified; K21.9 Gastro-esophageal reflux disease without esophagitis; Z79.01 Long term (current) use of anticoagulants; Z87.891 Personal history of nicotine dependence
CPT/HCPCS: J0282; J1160

== ENCOUNTER 2017-08-21 03:34 | Emergency (ER) | payer OTHER ==
[~2017-08-21] VITALS: Ht 167.6 cm; Wt 54.5 kg
[~2017-08-21 03:34] MED LIST changes: +ACETAMIN500 M2 PO; +AMBIEN5 MG PO; +AMOX/K CLAV875 M1 PO; +B121000 MCG PO; +CRESTOR20 MG PO; +MIRAPEX0.125 MG PO; +PANTOPRAZOLE SO40 MG PO; +PREDNISONE20 MG PO; +PROLIA60 MG/ML SC; +SEROQUEL25 MG PO; +SPIRIVA RE2.5 MCG/AC IN; +SYMBICORT1 AE1 IN; +TOVIAZ8 MG PO; +TRIMETHOPRIM100 MG PO; +UNIPHYL400 MG PO; +VENTOLIN HFA IN; +VERAPAMIL120 M1 PO; +VERAPAMIL240 M1 PO; +XARELTO10 MG PO
[2017-08-21 04:23] LABS: ALKALINE PHOSPHATASE 42 u/l (38-126); ANION GAP 17 (6-22 (CALC)); BILIRUBIN, TOTAL 0.3 mg/dL (0.0-1.4); BUN 9 mg/dL (8-23); BUN/CREATININE RATIO 17 (12-20 (CALC)); CALCIUM 9.2 mg/dL (8.4-10.2); CARBON DIOXIDE 25 mmol/l (22-30); CHLORIDE 105 mmol/l (95-108); CREATININE 0.5 mg/dL (0.5-1.0); GFR > 60 ML/MIN (>=60 (CALC)); GFR FOR AFR.AMER. > 60 ML/MIN (>=60 (CALC)); GLUCOSE 137 mg/dL (82-115); POTASSIUM 3.7 mmol/l (3.5-5.1); SGOT/AST 30 u/l (9-36); SGPT/ALT 47 u/l (11-66); SODIUM 143 mmol/l (137-146); TOTAL PROTEIN 6.5 g/dL (6.3-8.2)
[2017-08-21 04:25] LABS: HEMATOCRIT 31.9 % (37.0-47.0); HEMOGLOBIN 10.1 g/dl (12.0-16.0); IMMATURE GRANULOCYTES 0.4 % (0.0-1.0); MEAN CELL VOLUME 93.3 fL CALC (80.0-100.0); MEAN CORPUSCULAR HGB 29.5 pG CALC (26.0-32.0); MEAN CORPUSCULAR HGB CONC 31.7 g/L CALC (32.0-36.0); NEUT# 8.2 thou/uL (2.00-7.15); RED BLOOD COUNT 3.42 mill/uL (4.20-5.60); RED CELL DISTRI WIDTH 13.9 % (11.5-15.5)
[2017-08-21 04:34] LABS: INTERNATIONAL NORMALIZED RATIO 1.3 RATIO (0.7-1.3)
[2017-08-21 04:36] LABS: MYOGLOBIN 41 ng/mL (0 - 62)
[2017-08-21] MEDS ORDERED: MULTAQ400 MG PO (04:40)
[2017-08-21] MEDS ORDERED: SPIRONOLACTONE25 MG PO (04:42)
[2017-08-21] MEDS ORDERED: DILTIAZEM120 MG PO (04:45)
[2017-08-21] MEDS ORDERED: ZOPICLONE (04:59)
[2017-08-21 07:22] VITALS: BP 105/87
== END 2017-08-21 07:24 | disposition short-term general hospital (02) | DRG 292 ==
LOC: ED 03:34
PROVIDERS: Emergency Medicine
DX: I50.9 Heart failure, unspecified (principal); J44.1 Chronic obstructive pulmonary disease with (acute) exacerbation; I48.91 Unspecified atrial fibrillation; I47.1 Supraventricular tachycardia; R06.02 Shortness of breath
CPT/HCPCS: J0282